=== PATIENT | male | born 1940 | race Hispanic/Latino ===

== ENCOUNTER 2019-01-15 06:25 | Outpatient (CLI) | payer MEDICARE, BC | END 2019-01-15 06:26 | disposition home or self-care (01) | LOC: CARDIO 06:25 ==

== ENCOUNTER 2019-02-13 07:32 | Day surgery (SDC) | payer MEDICARE, BC ==
[2019-02-10 12:28] VITALS: BMI 28.7
[2019-02-13 08:03] LABS: BASO # 0.05 K/mm3 (0.0-2.0); BASO % 0.6 % (0.0-3.0); EOS # 0.3 (0.0-0.7); EOS % 3.2 % (1.5-5.0); HEMOGLOBIN 15.9 g/dL (14.0-18.0); LYMPH # 2.7 (1.2-3.4); LYMPH % 29.3 % (22.0-35.0); MEAN CELL VOLUME 94.4 fl (80.0-105.0); MEAN CORPUSCULAR HEMOGLOBIN 31.6 pg (25.0-35.0); MEAN CORPUSCULAR HGB CONC 33.5 g/dl (31.0-37.0); MEAN PLATELET VOLUME 11.8 fl (7.0-11.0); MONO # 0.5 (0.1-0.6); MONO % 5.9 % (1.0-6.0); RBC 5.03 10^6/uL (3.5-6.1); RED CELL DISTRIBUTION WIDTH 12.8 % (11.5-14.5)
[2019-02-13 08:10] LABS: INR 0.98; PARTIAL THROMBOPLASTIN TIME 36.1 Seconds (26.9-38.3); PROTHROMBIN TIME 11.1 SECONDS (9.4-12.5)
[2019-02-13 08:13] LABS: BLOOD UREA NITROGEN 19 mg/dL (7-21); CALCIUM 9.7 mg/dL (8.4-10.5); GFR NON-AFRICAN AMERICAN > 60; HDL CHOLESTEROL 55 mg/dL (29-60)
[2019-02-13 08:23] VITALS: O2SAT 98
[2019-02-13 08:23] LABS: LDL CHOLESTEROL 106 mg/dL (0-129)
[2019-02-13] MEDS ORDERED: Lidocaine PF 2% (5 ml) Inj (For Cardiac Arrhy) ONE (08:37)
[2019-02-13] MEDS ORDERED: Iodixanol 320 MG/ML 200 ML BOTTLE IV ONE (08:38)
[2019-02-13] MEDS ORDERED: Iodixanol 320 MG/ML 100 ML BOTTLE IV ONE (08:38)
[2019-02-13] MEDS ORDERED: Iohexol 350mgl/ml 50 ML ONE (08:38)
[2019-02-13] MEDS ORDERED: Verapamil 0 ML ONE (08:41)
[2019-02-13] MEDS ORDERED: Nitroglycerin 50mg in D5W 0 MG/0 ML BOTTLE IV ONE (08:41)
[2019-02-13] MEDS ORDERED: Midazolam 2 MG/2 ML VIAL ONE (09:34)
[2019-02-13] MEDS ORDERED: Morphine 2 mg/ml ISec ONE (09:50)
[2019-02-13] MEDS ORDERED: Eptifibatide 20 mg/10mL Inj IVP ONE (10:03)
[2019-02-13] MEDS ORDERED: Sodium Chloride 0.9% 1,000 ML IV SCH (10:45)
--- NOTE | 2019-02-13 11:24 | CPOSTOP ---
DATE: 02/13/2019 CARDIOVASCULAR LAB POST PROCEDURE NOTE PHYSICIAN: Sandra Cuenca MD RETORT UNLOADER: Heidy computer technician. TYPE OF ANESTHESIA: Moderate conscious sedation, total 2 mg of versed and 100 of fentanyl and 2 mg of Morphine given periodically. Started 1 mg Versed and 50 of fentanyl. PRE-PROCEDURE DIAGNOSES: Unstable angina, abnormal stress test, history of multiple stent in the heart and aortic stenosis. PROCEDURE PERFORMED: 1. Left heart catheterization. 2. Right heart catheterization. 3. PRU...108 ( pt is sensitive to Plavix). 4. Stenting of circumflex. FINDINGS: Circumflex 95% stenosis, RCA 80% to 90% stenosis mid and distal RCA 95% stenosis. No gradient across aortic valve. FINAL DIAGNOSIS: Two-vessel disease. No aortic stenosis. POST PROCEDURE CONDITION: The patient's condition is stable. VASCULAR ACCESS SITE: Right femoral artery for left heart catheterization and right femoral vein for right heart catheterization. CLOSURE DEVICE: Angio-Seal for right femoral artery and Mynx for right femoral vein. RADIATION DOSE: 50014.6 milligray unit. TOTAL CUMULATIVE DOSE: 1608 milligray unit. TOTAL FLUORO TIME: 9.2 minutes. Sandra Cuenca MD MTDD
[2019-02-13] MEDS: Insulin Reg-LOW-Coverage SC SCH ×2 (12:20→17:20)
[2019-02-13 12:27] VITALS: RESP 20
--- NOTE | 2019-02-13 12:49 | HP ---
DATE OF EXAM: 02/13/2019 REASON FOR ADMISSION: Left heart cath, possible angioplasty, abnormal stress test, and chest pain. BRIEF CLINICAL HISTORY: This is a 78-year-old male with past medical history significant for hypertension; hyperlipidemia; coronary artery disease, status post multiple stents, last stent done by Dr. Miah Mejía at [facility]. Was seen by Dr. Rainey recently, complaining of chest pain on exertion, so the patient underwent stress test is abnormal. The patient was scheduled for elective cardiac cath and possible angioplasty. PAST MEDICAL HISTORY: Significant for coronary artery disease, status post multiple stents so far. According to the patient, 6 stents were done. History of hypertension, hyperlipidemia and diabetes. SOCIAL HISTORY: Denies smoking. Denies any history of alcohol abuse. CURRENT MEDICATIONS: The patient is taking vitamin D3 1000 units every day, lisinopril 10 mg daily, gemfibrozil, Lopid 600 mg daily, Persantine 25 mg p.o. daily, Plavix 75 mg daily, metformin 500 mg daily, pravastatin, Pravachol 40 mg daily, aspirin 81 mg daily, travoprost 1 drop both eyes, and Ellipta inhaler as well as Combigan eye drop. ALLERGIES: NO KNOWN DRUG ALLERGIES. PREVIOUS CARDIAC WORKUP: As follows; the patient had a stress test in [facility] dated 01/15/2019 that shows probably abnormal myocardial perfusion study, partial reversible apical defect suspicious for ischemia, ejection fraction 60% as well as Lexiscan. The patient has also echocardiography done dated 01/13/2019 that shows ejection fraction 45%, inferior wall hypokinesis, moderate to severe , trace aortic regurgitation, trace mitral regurgitation, and trace tricuspid regurgitation. REVIEW OF SYSTEMS: As per HPI. PHYSICAL EXAMINATION VITAL SIGNS: Height of the patient 5 feet 10 inches, weight of the patient 200 pounds, and body mass index 28.7 kg/m2. Rest of the vitals; temperature afebrile, heart rate 55, and blood pressure 156/83. HEENT: PERRLA. Extraocular muscles intact. NECK: Supple. No carotid bruits or thyromegaly. CHEST: Clear to auscultation. HEART: S1 and S2 regular. ABDOMEN: Soft. EXTREMITIES: Clubbing and cyanosis negative. LABORATORY DATA: EKG showed normal sinus, poor R-wave progression, possible septal infarct, age undetermined, heart rate 55. Date of the EKG is 02/13/2019. Blood workup as follows; WBC 9, hemoglobin 15.9, hematocrit 47.5, and platelet count 269. Chemistry shows sodium 140, potassium 4.4, chloride 108, carbon dioxide 23, anion gap of 13, BUN 19, and creatinine 0.9. IMPRESSION AND PLAN: A 78-year-old male with past medical history significant for diabetes; hypertension; hyperlipidemia; coronary artery disease, status post multiple stents in the past; moderate aortic stenosis. Abnormal stress test, partially reversible ischemia, a small apical defect suspicious for ischemia, moderate to severe aortic stenosis, trace aortic regurgitation, trace mitral regurgitation, and trace tricuspid regurgitation, scheduled for elective cardiac catheterization and possible angioplasty. Risks, benefits, and alternatives were discussed with the patient, the patient is agreeable to proceed for cardiac catheterization. The patient is currently on Plavix load with 75 mg of Plavix and will proceed with cardiac catheterization. Further recommendation after cardiac catheterization. We will follow with you. Thank you and Dr. Rainey for providing us the opportunity in taking care of the patient, Nando Kay. Sandra Cuenca MD SHARMILA
[2019-02-13 15:29] LABS: BASO # 0.04 K/mm3 (0.0-2.0); BASO % 0.5 % (0.0-3.0); EOS # 0.2 (0.0-0.7); EOS % 2.1 % (1.5-5.0); HEMOGLOBIN 14.6 g/dL (14.0-18.0); LYMPH # 2.1 (1.2-3.4); LYMPH % 24.4 % (22.0-35.0); MEAN CELL VOLUME 94.6 fl (80.0-105.0); MEAN CORPUSCULAR HEMOGLOBIN 31.5 pg (25.0-35.0); MEAN CORPUSCULAR HGB CONC 33.3 g/dl (31.0-37.0); MEAN PLATELET VOLUME 12.1 fl (7.0-11.0); MONO # 0.4 (0.1-0.6); MONO % 4.1 % (1.0-6.0); RBC 4.63 10^6/uL (3.5-6.1); RED CELL DISTRIBUTION WIDTH 12.8 % (11.5-14.5); WHITE BLOOD COUNT 8.6 10^3/uL (4.5-11.0)
[2019-02-13 15:40] LABS: BLOOD UREA NITROGEN 19 mg/dL (7-21); CALCIUM 9.2 mg/dL (8.4-10.5); GFR NON-AFRICAN AMERICAN > 60
[2019-02-13 17:29] VITALS: BP 147/74; PULSE 56; TEMP 98.2
--- NOTE | 2019-02-13 18:55 | CARD ---
APPROVED REPORT Date of service: 02/13/2019 Procedure(s) performed: Complete Heart Catheterization PTCA with Stenting of proximal Circumflex with MARK. PRU...108 ( pt is sensitive to Plavix). HISTORY The patient is a 78 year-old male with a history of : previous [place] (> 7 days), most recent EF: 60%. (EF Method: RADIONUCLIDE), diabetes mellitus with oral treatment , previous diagnostic cath, tobacco history() : The patient is a current smoker , previous PCI (The PCI date was 11/12/2007), hypertension , dyslipidemia , hx of multiple stents 6-7 so far with abnormal stress test Apical and infero-lateral Ischemia. possibly moderate to sever By Echo.. INDICATION The indication(s) include : positive stress test, dyspnea. CASE TECHNIQUE The patient was brought electively to the Cardiac Catheterization Laboratory in a fasting state and was prepped and draped in a sterile manner. The right femoral groin was infiltrated with 2% Lidocaine subcutaneous anesthesia. A sheath was inserted into the right femoral artery without difficulty. Coronary angiography was performed using coronary diagnostic catheters. The left coronary system was accessed and visualized with a Diagnostic ,5F JL 4 CATH DXT 100 CM catheter. The right coronary system was accessed and visualized with a Diagnostic ,5F JR 4 CATH DXT 100 CM catheter. The left ventricle was accessed and visualized with a 5F PIGTAIL 145 CATH DXT 110 CM catheter. Left ventricular/Aortic Valve gradient assessed on pullback. Left ventriculogram was performed in JAY projection. Closure device was deployed with a 6 Fr Angio-Seal without any complications. The patient tolerated the procedure well and there were no complications associated with the procedure. Vessel Analysis The patient's coronary anatomy is right dominant. The left main coronary artery is a medium size vessel with diffuse calcification noted throughout this vessel and without significant stenosis. There is a 30% stenosis in the distal segment. The left main bifurcates to the left anterior descending and circumflex. The left anterior descending artery is a medium size vessel with diffuse calcification noted throughout this vessel and without significant stenosis. patent Stents noted in Mid and proximal LAD The first diagonal branch is a small size vessel with diffuse calcification noted throughout this vessel and without significant stenosis. The second diagonal branch is a medium size vessel with diffuse calcification noted throughout this vessel and without significant stenosis. There is a 60% stenosis in the ostial segment. The circumflex artery is a medium size vessel with diffuse calcification noted throughout this vessel and with significant stenosis. There is a 95% stenosis in the proximal segment. Psatent stent in Mid Cx The first obtuse marginal branch is a medium size vessel with diffuse calcification noted throughout this vessel and without significant stenosis. The second obtuse marginal branch is a medium size vessel with diffuse calcification noted throughout this vessel and without significant stenosis. The right coronary artery is a medium size vessel with diffuse calcification noted throughout this vessel and with significant stenosis. There is a 95% stenosis in the distal segment. mid RCA has 80-90 % stenosis The right posterior descending artery is a small size vessel with diffuse calcification noted throughout this vessel and with significant stenosis. The right posterolateral branch is a small size vessel with diffuse calcification noted throughout this vessel and without significant stenosis. Left Ventricle The left ventricle is normal in size with Normal contractility. The left ventricular ejection fraction is estimated to be 55%. The left ventricular end diastolic pressure is 15 mmHg. There was no gradient across the aortic valve upon pullback. No gradient across aortic Valve on Pull back. Right Heart Cath Findings The Right Atrial Pressure is 6-7 mmHg. The Right Ventricular Pressure is 40/12 mmHg. The Pulmonary Artery Pressure is 36/15 mmHg. mean of 20 The Pulmonary Catheter Wedge Pressure is 12 mmHg. PVR 2.1 Wood units. The Cardiac Output is 3.90 L/min. The Cardiac index is 1.87 L/min/m2. PCI Technique Lesion Anticoagulation was achieved with Heparin and integrellin Bolus two doses. Percutaneous coronary intervention was performed on the proximal circumflex artery segment. The lesion stenosis prior to intervention was 95% with LULU 2 flow. A Luge 182 Interventional Guidewire was used to cross the lesion. BALLOON DILATION A Balloon catheter 2.5 x 10 mm Sprinter RX was inserted and inflated up to 12.00atm for 14seconds. STENT DEPLOYMENT A drug-eluting stent STENT RESOLUTE SIM 3.0 X 18 was inserted and inflated up to 12.00atm for 12seconds. POST STENT DEPLOYMENT BALLOON DILATION A Balloon catheter 3.25 x 8 mm Trek RX NC was inserted and inflated up to 16.00atm for 13seconds. Final angiography reveals 0 % stenosis with LULU 3 flow. Conclusion Two Vessel Diz Cx and RCA. Patent stents in Mid Cx and Proximal and Mid LAD. Preserved LV Fx.EF-55%,EDP-15 mmof Hg. RHC-RA-6-7, RV-40/12, PA-36/15 with a mean of 20 mmof hg. PCW-12, CO-3.9 ,PVR-2.1 mccall unit. NO SIGNIFICANT BY CATH. Successful PTCA with Mark of Proximal Cx. Pt is sensitive to Plavix, PRU-108. Recommendations Daily ASA with Plavix for at least one year Aggressive Medical TherapyCardiac Risk Reduction Program Weight Loss Reduction Program Pt is Scheduled for PTCA of RCA/ R PDA on 03/13/2019 at 7:30 am. Cc; Darwin Coto/ Redd.
--- NOTE | 2019-02-13 19:10 | CARD ---
APPROVED REPORT Date of service: 02/13/2019 EKG Measurement Heart [id number] <Conclusion> Sinus bradycardia with 1st degree AV block with occasional premature ventricular complexes Septal infarct, age undetermined Abnormal ECG
--- NOTE | 2019-02-13 19:16 | CARD ---
APPROVED REPORT Date of service: 02/13/2019 EKG Measurement Heart [id number] <Conclusion> Sinus bradycardia Septal infarct, age undetermined NDSTT abnormalities CCR Abnormal ECG
== END 2019-02-13 20:40 | disposition home or self-care (01) ==
LOC: CATH 07:32 → 2RSO 10:48 → CATH 20:40
PROVIDERS: ATTEND Internal Medicine Cardiovascular Disease
DX: I25.110 Atherosclerotic heart disease of native coronary artery with unstable angina pectoris (principal); I10 Essential (primary) hypertension; E78.5 Hyperlipidemia, unspecified; E11.9 Type 2 diabetes mellitus without complications; I35.0 Nonrheumatic aortic (valve) stenosis; I44.0 Atrioventricular block, first degree; I25.2 Old myocardial infarction; Z79.02 Long term (current) use of antithrombotics/antiplatelets; Z79.84 Long term (current) use of oral hypoglycemic drugs; Z95.5 Presence of coronary angioplasty implant and graft
CPT/HCPCS: 36415; 80048; 80061; 82948; 85025; 85175; 85576; 85610; 85730; 93005; 93460; 99152; 99153; C1725 ×2; C1760 ×2; C1769 ×3; C1874; C1887; C1894; C2629; C9600; J0360; J1327; J1644 ×2; J2250; J2270; J3010; J7030; J7040; Q9966; Q9967 ×2

== ENCOUNTER 2019-03-13 06:05 | Day surgery (SDC) | payer MEDICARE, BC ==
[2019-02-10 12:28] VITALS: BMI 28.7
--- NOTE | 2019-03-13 01:28 | HP ---
DATE OF EXAM: 03/13/2019 REASON FOR ADMISSION: Left heart cath possible angioplasty for staged angioplasty of right coronary artery. BRIEF CLINICAL HISTORY: This is a 79-year-old male with past medical history significant for coronary artery disease, status post PTCA of proximal circumflex with drug-eluting stent on 02/13/2019, going to be admitted electively for possible PTCA of RCA. This is a 79-year-old male with past medical history significant for hypertension, hyperlipidemia, coronary artery disease, status post multiple stents, last stent by Dr. Miah Mejía at [facility] who had seen and had a cardiac catheterization 02/13/2019. Cardiac catheterization revealed two-vessel disease circumflex and RCA, patent stent in mid circumflex, proximal and mid LAD, preserved LV function ejection fraction 55%, and EDP was in the range of 15. Right heart catheterization revealed RA 6 to 7, RV 40/12, PA 30/15 with mean PA 20 mmHg, pulmonary capillary wedge pressure 12, cardiac output 3.9 liter per minute, and pulmonary vascular resistance 2.1 mccall unit. No significant aortic stenosis by cath, successful PTCA with drug-eluting stent of proximal circumflex was done. PRU test was done, the patient was found to be sensitive to Plavix, PRU was 108. Today, the patient admitted electively for PTCA of RCA/RPDA. PAST MEDICAL HISTORY: Significant for coronary artery disease, status post multiple stents so far according to the patient 6 stents were done and then last time the patient has another stent in circumflex, total 7 stents were done. SOCIAL HISTORY: Denies smoking. Denies any history of alcohol abuse. PREVIOUS CARDIAC WORKUP FOLLOWS: The patient has a most recent cardiac catheterization 02/13/2019 with left heart and right heart catheterization finding as above. Prior to that, the patient had stress test done 01/15/2019 that shows abnormal myocardial perfusion study, apical defect suspicious of ischemia, ejection fraction 60%. The patient had echocardiography done 01/13/2019 that shows ejection fraction 45%, inferior wall hypokinesis, [id number] aortic stenosis, trace aortic regurgitation, trace mitral regurgitation, trace tricuspid regurgitation, but by catheterization dated 02/13/2019, no significant gradient across aortic valve noted. At that time, the right heart catheterization revealed RA 6 to 7, RV 40/12, PA 36/15, and mean PA of 20. Pulmonary capillary wedge pressure 12, cardiac output 3.9 liter per minute and PVR 2.1 mccall unit. No significant gradient across aortic valve noted and no significant aortic stenosis. The patient found to be sensitive to the Plavix and PRU was 108. CURRENT MEDICATIONS: The patient is taking at home Lasix, lisinopril 10 mg daily, gemfibrozil 600 mg daily, Persantine 25 mg daily, Plavix 75 mg daily, baby aspirin 81 mg daily, and timolol maleate eyedrops in both eyes. ALLERGIES: NO KNOWN DRUG ALLERGIES. REVIEW OF SYSTEMS: As per HPI. PHYSICAL EXAMINATION: GENERAL: As follows; height of the patient 5 feet 10 inches, weight of the patient 200 pounds, and body mass index 28.7 kg/m2. VITAL SIGNS: Heart rate 70 and blood pressure 130/80. HEENT: PERRLA. Extraocular muscles intact. NECK: Supple. No carotid bruits. No thyromegaly. CHEST: Clear to auscultation. HEART: S1 and S2 regular. ABDOMEN: Soft. EXTREMITIES: Clubbing and cyanosis negative. LABORATORY DATA: Blood workup pending. IMPRESSION AND PLAN: A 79-year-old male with past medical history significant for multiple stents. The patient had 6 prior stents in the last admission 02/13/2019. The patient had stent in circumflex, total 7 stents were done. Today, the patient brought for percutaneous transluminal coronary angioplasty of right coronary artery and right posterior descending coronary artery. We will await for the blood workup. Risks, benefits, and alternative were discussed with the patient. The patient agreed and proceed for cardiac catheterization. The patient is sensitive to Plavix, we will load the Plavix and approach for cardiac catheterization. Further recommendation after the cardiac catheterization. We will follow with you. Thank you Dr. Trimble for providing us an opportunity in taking care of the patient, Nando Kay. Sandra Cuenca MD
[2019-03-13 06:53] LABS: BASO # 0.03 K/mm3 (0.0-2.0); BASO % 0.4 % (0.0-3.0); EOS # 0.2 (0.0-0.7); EOS % 3.2 % (1.5-5.0); HEMOGLOBIN 15.2 g/dL (14.0-18.0); LYMPH % 27.1 % (22.0-35.0); MEAN CELL VOLUME 94.6 fl (80.0-105.0); MEAN CORPUSCULAR HEMOGLOBIN 31.7 pg (25.0-35.0); MEAN CORPUSCULAR HGB CONC 33.6 g/dl (31.0-37.0); MEAN PLATELET VOLUME 11.8 fl (7.0-11.0); MONO # 0.5 (0.1-0.6); RBC 4.79 10^6/uL (3.5-6.1); RED CELL DISTRIBUTION WIDTH 12.9 % (11.5-14.5); WHITE BLOOD COUNT 7.5 10^3/uL (4.5-11.0)
[2019-03-13] MEDS ORDERED: Lidocaine PF 2% (5 ml) Inj (For Cardiac Arrhy) ONE (06:53)
[2019-03-13] MEDS ORDERED: Phenylephrine 10 mg/ml Inj ONE (06:54)
[2019-03-13] MEDS ORDERED: Nitroglycerin 50mg in D5W 50 MG/250 ML BOTTLE IV ONE (06:54)
[2019-03-13] MEDS ORDERED: Iodixanol 320 MG/ML 100 ML BOTTLE IV ONE (06:54)
[2019-03-13] MEDS ORDERED: Iodixanol 320 MG/ML 200 ML BOTTLE IV ONE (06:54)
[2019-03-13] MEDS ORDERED: Verapamil 2 ML ONE (06:54)
[2019-03-13] MEDS ORDERED: Iohexol 350mgl/ml 50 ML ONE (06:54)
[2019-03-13] MEDS ORDERED: Heparin 2,000 ML IV ONE (06:55)
[2019-03-13 06:59] LABS: INR 1.02; PARTIAL THROMBOPLASTIN TIME 36.7 Seconds (26.9-38.3); PROTHROMBIN TIME 11.5 SECONDS (9.4-12.5)
[2019-03-13] MEDS ORDERED: Midazolam 2 MG/2 ML VIAL ONE ×2 (07:33→07:54)
[2019-03-13 07:38] LABS: BLOOD UREA NITROGEN 21 mg/dL (7-21); GFR NON-AFRICAN AMERICAN > 60; HDL CHOLESTEROL 46 mg/dL (29-60)
[2019-03-13 07:48] LABS: LDL CHOLESTEROL 108 mg/dL (0-129)
[2019-03-13] MEDS ORDERED: Eptifibatide 20 mg/10mL Inj IVP ONE (08:03)
--- NOTE | 2019-03-13 09:05 | CARD ---
APPROVED REPORT Date of service: 03/13/2019 EKG Measurement Heart [id number] [place] [id number] <Conclusion> Sinus bradycardia Possible septal infarct, age undetermined Abnormal ECG
--- NOTE | 2019-03-13 09:25 | CPOSTOP ---
DATE: 03/13/2019 CARDIOVASCULAR LAB POST PROCEDURE NOTE PHYSICIAN: Sandra Cuenca MD SENIOR UI DESIGNER: Heidy, manager cardiovascular. TYPE OF ANESTHESIA: Moderate conscious sedation; total 3 mg of Versed and 150 of fentanyl given, periodically started 1 mg of Versed and 50 mg of fentanyl. PRE-PROCEDURE DIAGNOSIS: Unstable angina, angioplasty for right coronary artery. PROCEDURES PERFORMED: 1. Left and right injection. 2. Stenting of mid and distal right coronary artery with drug-eluting stent. FINDINGS: Mid right coronary artery 80-90% stenosis, distal artery 95% stenosis. FINAL DIAGNOSIS: Critical disease of one-vessel, patent previous stent in circumflex and left anterior descending artery. POST PROCEDURE CONDITION: The patient's condition is stable. VASCULAR ACCESS SITE: Left radial. CLOSURE DEVICE: TR Band. TOTAL RADIATION DOSE: 74566.0 milligray unit. CUMULATIVE DOSE: 2225 milligray unit. TOTAL FLUORO TIME: 10 minutes. Sandra Cuenca MD
[2019-03-13 13:05] VITALS: RESP 20; TEMP 97.7
[2019-03-13] MEDS ORDERED: Bacitracin 500 Units/gm Oint Foilpak UD ONE (13:13)
[2019-03-13 13:39] LABS: BASO # 0.02 K/mm3 (0.0-2.0); BASO % 0.3 % (0.0-3.0); EOS # 0.2 (0.0-0.7); EOS % 2.2 % (1.5-5.0); HEMOGLOBIN 13.7 g/dL (14.0-18.0); LYMPH # 1.7 (1.2-3.4); LYMPH % 23.5 % (22.0-35.0); MEAN CELL VOLUME 93.8 fl (80.0-105.0); MEAN CORPUSCULAR HEMOGLOBIN 31.5 pg (25.0-35.0); MEAN CORPUSCULAR HGB CONC 33.6 g/dl (31.0-37.0); MONO # 0.5 (0.1-0.6); MONO % 6.6 % (1.0-6.0); RBC 4.35 10^6/uL (3.5-6.1); RED CELL DISTRIBUTION WIDTH 12.9 % (11.5-14.5); WHITE BLOOD COUNT 7.4 10^3/uL (4.5-11.0)
[2019-03-13 13:49] LABS: BLOOD UREA NITROGEN 18 mg/dL (7-21); CALCIUM 8.9 mg/dL (8.4-10.5); GFR NON-AFRICAN AMERICAN > 60
[2019-03-13 13:57] VITALS: O2SAT 95
[2019-03-13 13:58] VITALS: BP 138/83; PULSE 51
[2019-03-13] MEDS ORDERED: Sodium Chloride 0.9% 1,000 ML IV SCH (15:00)
--- NOTE | 2019-03-13 16:15 | CON ---
DATE: 03/13/2019 HISTORY OF PRESENT ILLNESS: The patient is a 79-year-old male with past medical history of coronary artery disease status post PTCA with stent placement on 02/13/2019, admitted for elective PTCA of the right coronary artery. PAST MEDICAL HISTORY: The patient's past medical history includes coronary artery disease, hypertension, hypercholesterolemia, status post multiple stent placements. 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 Glaucoma. PAST SURGICAL HISTORY: The patient has no significant past surgical history. CURRENT MEDICATIONS: Lisinopril 10 mg daily, Plavix 75 mg daily, dipyridamole 25 mg twice daily, pravastatin 40 mg daily and gemfibrozil 600 mg twice daily. SOCIAL HISTORY: The patient has a history of one pack per day smoking for greater than 40 years. There is no his history of alcohol abuse. FAMILY HISTORY: Noncontributory. ALLERGIES: THE PATIENT HAS NO KNOWN DRUG ALLERGIES. REVIEW OF SYSTEMS: The patient denies any chest pain, shortness of breath, swelling in the legs. There is no cough, fever, or chills. No melena. No bright red blood per rectum. No nausea, no vomiting, no diaphoresis, no jaundice or rash. PHYSICAL EXAMINATION: GENERAL: The patient is a well-developed male in no acute distress. VITAL SIGNS: Blood pressure 138/83, pulse 57, temperature 97.7, respiratory rate 20. HEENT: Head is normocephalic, atraumatic. Pupils are equal, round, reactive to light. Extraocular movements intact. NECK: Supple with no thyromegaly. No carotid bruit. No adenopathy. LUNGS: Clear. HEART: Regular rate and rhythm. ABDOMEN: Soft, nontender. Bowel sounds are normoactive. EXTREMITIES: Without cyanosis, clubbing or edema. NEUROLOGIC: The patient is awake and oriented x3 without focal sensory or motor deficits. SKIN: Warm and dry. LABORATORY DATA: WBC 7.5, hemoglobin 15.2, hematocrit 45.3, sodium 139, potassium 4.0, chloride 108, CO2 25, BUN 21, creatinine 0.9, and glucose 103. Cholesterol 168, LDL 108, and HDL 46. IMPRESSION: 1. Coronary artery disease for elective percutaneous transluminal coronary angioplasty of the right coronary artery. 2. Hypercholesterolemia. 3. Degenerative joint disease. 4. Pulmonary asbestosis. 5. Glaucoma. PLAN The patient is status post cardiac catheterization by Dr. Cuenca. There were no complications. We will monitor postoperatively and the patient will be discharged to home this afternoon if he remains stable. TRACI Navarrete MD
--- NOTE | 2019-03-13 17:44 | CARD ---
APPROVED REPORT Date of service: 03/13/2019 Procedure(s) performed: Selective Right and Left Coronary Angiography PTCA with Stenting of Distal RCA with LIANA PTCA with Stenting of Mid RCA with Liana HISTORY The patient is a 79 year-old male with a history of : previous [place] (> 7 days), most recent EF: 55%. (EF Method: LVG), diabetes mellitus with oral treatment , previous diagnostic cath, tobacco history() : The patient is a current smoker , previous PCI (The PCI date was 02/13/2019), hypertension , dyslipidemia , for staged PTCA of RCA. INDICATION The indication(s) include : positive stress test, unstable angina . CASE TECHNIQUE The patient was brought electively to the Cardiac Catheterization Laboratory in a fasting state and was prepped and draped in a sterile manner. The left wrist was infiltrated with 2% Lidocaine subcutaneous anesthesia. A 6 Fr Glidesheath (Radial Sheath Only) sheath was inserted into the left radial artery without difficulty. Coronary angiography was performed using coronary diagnostic catheters. The left coronary system was accessed and visualized with a Diagnostic , 6F JL4 CATH DXT 100 CM catheter. The right coronary system was accessed and visualized with a Guider,3.5 JR 6Fr catheter. Closure device was deployed with a Fr TR Band (Large) without any complications. The patient tolerated the procedure well and there were no complications associated with the procedure. Vessel Analysis The patient's coronary anatomy is right dominant. The left main coronary artery is a medium size vessel with diffuse calcification noted throughout this vessel and without significant stenosis. There is a 30% stenosis in the distal segment. The left main bifurcates to the left anterior descending and circumflex. The left anterior descending artery is a medium size vessel with diffuse calcification noted throughout this vessel and without significant stenosis. Patent stents in Proximal and Mid LAd noted. The first diagonal branch is a small size vessel with diffuse calcification noted throughout this vessel and without significant stenosis. The second diagonal branch is a medium size vessel with diffuse calcification noted throughout this vessel and without significant stenosis. The circumflex artery is a medium size vessel with diffuse calcification noted throughout this vessel and without significant stenosis. patent stent in proximal and Mid Cx The first obtuse marginal branch is a medium size vessel with diffuse calcification noted throughout this vessel and without significant stenosis. The second obtuse marginal branch is a medium size vessel with diffuse calcification noted throughout this vessel and without significant stenosis. The right coronary artery is a medium size vessel with diffuse calcification noted throughout this vessel and with significant stenosis. There is a 95% stenosis in the distal segment. Mid RCA has 80-90% stenosis The right posterior descending artery is a small size vessel with diffuse calcification noted throughout this vessel and without significant stenosis. The right posterolateral branch is a small size vessel with diffuse calcification noted throughout this vessel and without significant stenosis. Left Ventricle LV gram not obtained today PCI Technique Lesion Anticoagulation was achieved with Heparin and Integrellin Boluses. Percutaneous coronary intervention was performed on the Distal right coronary artery. The lesion stenosis prior to intervention was 95% with LULU 2 flow. A JR 3.5 guider Guide Catheter was used to engage the ostium. A Luge 182 Interventional Guidewire was used to cross the lesion. BALLOON DILATION A Balloon catheter 2.0 x 12 mm Mini Trek RX was inserted and inflated up to 7.00atm for 19seconds. STENT DEPLOYMENT A drug-eluting stent STENT RESOLUTE SIM 2.25 X15 was inserted and inflated up to 12.00atm for 20seconds. Final angiography reveals 0 % stenosis with LULU 3 flow. PCI Technique Lesion 2 Percutaneous Coronary Intervention was performed on the mid right coronary artery. The lesion stenosis prior to intervention was 80-90% with LULU 2 flow. A JR 3.5 , 6 Fr Guide Catheter was used to engage the ostium. A Luge 182 Interventional Guidewire was used to cross the lesion. BALLOON DILATION A Balloon catheter 2.0 x 12 mm Mini Trek RX was inserted and inflated up to 8.00atm for 11seconds. STENT DEPLOYMENT A drug-eluting stent STENT RESOLUTE SIM 2.75 X18 was inserted and inflated up to 15.00atm for 20seconds. Final angiography reveals 0 % stenosis with LULU 3 flow. Conclusion Patent stents in LAD / Cx Successful PTCA with LIANA of Distal and Mid RCA. Pt was found to be sensitive (PRU -108) on last cath. LV gram was not obtained today. Recommendations Cardiac Rehabilitation ReferralDaily ASA with Plavix for at least one year Aggressive Medical TherapyCardiac Risk Reduction Program Weight Loss Reduction Program CC; Drs. Trimble/ Redd.
--- NOTE | 2019-03-13 21:04 | CARD ---
APPROVED REPORT Date of service: 03/13/2019 EKG Measurement Heart [id number] <Conclusion> Marked sinus bradycardia Possible Septal infarct, age undetermined NDSTT abnormalities Abnormal ECG
== END 2019-03-13 15:46 | disposition home or self-care (01) ==
LOC: CATH 06:05 → 2RSO 08:40 → CATH 15:46
PROVIDERS: ATTEND Internal Medicine Cardiovascular Disease
DX: I25.110 Atherosclerotic heart disease of native coronary artery with unstable angina pectoris (principal); I25.2 Old myocardial infarction; I10 Essential (primary) hypertension; E11.9 Type 2 diabetes mellitus without complications; E78.5 Hyperlipidemia, unspecified; I35.0 Nonrheumatic aortic (valve) stenosis; E78.00 Pure hypercholesterolemia, unspecified; H40.9 Unspecified glaucoma; F17.210 Nicotine dependence, cigarettes, uncomplicated; Z95.5 Presence of coronary angioplasty implant and graft
CPT/HCPCS: 36415; 80048; 80061; 85025; 85175; 85610; 85730; 86850; 86900; 93005; 93454; 99152; 99153; C1725; C1769 ×2; C1874 ×2; C9600; J1327; J1644 ×2; J2250; J3010; Q9966; Q9967